=== PATIENT | male | born 1985 | race Two or more races ===

== ENCOUNTER 2024-03-10 14:05 | Emergency (ER) | payer MEDICAID ==
[~2024-03-10] VITALS: Ht 165.1 cm; Wt 78.1 kg
[2024-03-10] MEDS: KETOROLAC TROMETH 60MG/2ML VIAL IM ONE (14:50)
[2024-03-10] MEDS: ONDANSETRON ODT 4 MG TAB PO ONE (14:51)
[2024-03-10] MEDS: MECLIZINE HCL 25 MG TAB PO ONE (14:51)
[2024-03-10 14:58] LABS: Basophils # (auto) 0 10 ^3/uL (0-0.2); Basophils % (auto) 0.4 % (0.0-2.0); Eosinophils # (auto) 0.2 10 ^3/uL (0-0.8); Eosinophils % (auto) 1.9 % (0.0-7.0); Hematocrit 47.2 % (41.0-53.0); Hemoglobin 15.8 g/dL (13.5-17.5); Lymphocytes # (auto) 3.1 10 ^3/uL (0.4-5.4); Mean Corpuscular Hgb Conc. 33.5 g/dL (32.0-36.0); Mean Corpuscular Volume 89.6 fL (80.0-100.0); Monocytes % (auto) 8.6 % (0.0-12.0); Neutrophils # (auto) 7.2 10 ^3/uL (1.6-8.6); Neutrophils % (auto) 62.1 % (37.0-80.0); Nucleated Red Blood Cells % 0.1 %; Platelet Count (auto) 328 10^3/uL (140-450); Red Blood Cells 5.28 10^6/uL (4.5-5.90); Red Cell Distribution Width 13.2 % (11.8-14.3); White Blood Cell 11.5 10^3/uL (4.4-10.8)
[2024-03-10 15:06] LABS: Chloride 107 mmol/L (98-107); Sodium 138 mmol/L (136-145)
[2024-03-10 15:07] LABS: Anion Gap 5 (5-15); Carbon Dioxide 26 mmol/L (20-31)
[2024-03-10 15:08] LABS: Calcium 9.9 mg/dL (8.7-10.4)
[2024-03-10 15:12] LABS: Glucose 101 mg/dL (74-106)
[2024-03-10 15:13] LABS: BUN/Creatinine Ratio 23.5 (10.0-20.0); Blood Urea Nitrogen 20 mg/dL (9-23); Lipase 40 U/L (12-53)
[2024-03-10 17:17] LABS: Urine Bacteria None Seen /hpf (None Seen)
[2024-03-10 17:23] LABS: Urine Blood Negative /uL (Negative); Urine Clarity Clear (Clear); Urine Color Light-Yellow (Yellow); Urine Protein, UAD Negative (Negative); Urine Specific Gravity 1.021 (1.001-1.035); Urine Urobilinogen Normal (Negative); Urine WBC 1 /hpf (0 - 3)
[2024-03-10] MEDS ORDERED: ZOFR4T PO (18:01)
[2024-03-10] MEDS ORDERED: MECL1TAB42 PO (18:01)
[2024-03-10 18:10] VITALS: BP 125/79; PULSE 48; RESP 16; TEMP 98.7; O2SAT 100
== END 2024-03-10 18:35 | disposition home or self-care (01) ==
LOC: ER 14:05
DX: R51.9 Headache, unspecified (principal); R10.9 Unspecified abdominal pain; R55 Syncope and collapse; R42 Dizziness and giddiness; W06.XXXA Fall from bed, initial encounter; Y93.89 Activity, other specified; Y92.89 Other specified places as the place of occurrence of the external cause; Y99.8 Other external cause status
CPT/HCPCS: 36415; 70450; 80048; 81001; 82962; 83690; 84484; 85025; 85379; 93005; 96372; 99285; J1885; J8597; Q0162

== ENCOUNTER 2024-03-17 21:36 | Inpatient (IN) | payer MEDICAID ==
[~2024-03-17] VITALS: Ht 165.1 cm; Wt 80.6 kg
[~2024-03-17 21:36] MED LIST: MECL1TAB42 PO; ZOFR4T PO
[2024-03-17 22:37] LABS: Urine Bacteria None Seen /hpf (None Seen)
[2024-03-17 22:47] LABS: Urine Blood Negative /uL (Negative); Urine Clarity Clear (Clear); Urine Color Dark-Orange (Yellow); Urine Protein, UAD Negative (Negative); Urine Specific Gravity 1.013 (1.001-1.035); Urine Urobilinogen 2 mg/dL (Negative); Urine WBC <1 /hpf (0 - 3); Urine pH 5.5 (5.0-9.0)
[2024-03-17 23:05] LABS: Basophils # (auto) 0 10 ^3/uL (0-0.2); Basophils % (auto) 0.4 % (0.0-2.0); Eosinophils # (auto) 0.3 10 ^3/uL (0-0.8); Eosinophils % (auto) 2.3 % (0.0-7.0); Hematocrit 45.8 % (41.0-53.0); Hemoglobin 15.5 g/dL (13.5-17.5); Lymphocytes # (auto) 3.2 10 ^3/uL (0.4-5.4); Lymphocytes % (auto) 28.6 % (10.0-50.0); Mean Corpuscular Hemoglobin 30.4 pg (28.0-32.0); Mean Corpuscular Hgb Conc. 33.8 g/dL (32.0-36.0); Mean Corpuscular Volume 90.1 fL (80.0-100.0); Monocytes # (auto) 0.9 10 ^3/uL (0-1.3); Monocytes % (auto) 8.2 % (0.0-12.0); Neutrophils # (auto) 6.8 10 ^3/uL (1.6-8.6); Neutrophils % (auto) 60.5 % (37.0-80.0); Nucleated Red Blood Cells % 0.1 %; Platelet Count (auto) 313 10^3/uL (140-450); Red Blood Cells 5.09 10^6/uL (4.5-5.90); Red Cell Distribution Width 13.3 % (11.8-14.3); White Blood Cell 11.2 10^3/uL (4.4-10.8)
[2024-03-17 23:18] LABS: Chloride 107 mmol/L (98-107); Sodium 139 mmol/L (136-145)
[2024-03-17 23:19] LABS: Anion Gap 5 (5-15); Carbon Dioxide 27 mmol/L (20-31)
[2024-03-17 23:24] LABS: BUN/Creatinine Ratio 11.5 (10.0-20.0); Blood Urea Nitrogen 12 mg/dL (9-23); Glucose 108 mg/dL (74-106)
[2024-03-18] MEDS: IOHEXOL 300 MG/ML 100ML BOTTLE IJ ONE (01:02)
[2024-03-18] MEDS: SODIUM CHLORIDE 0.9% 1,000 ML IV ONE (01:20)
[2024-03-18] MEDS: ONDANSETRON HCL 4 MG/2 ML VIAL IV ONE ×2 (01:20→01:43)
[2024-03-18 01:31] VITALS: PULSE 98; RESP 18; O2SAT 97
[2024-03-18] MEDS: cefTRIAXone 1GM/50ML D5W 50 ML IV ONE (01:37)
[2024-03-18] MEDS: MORPHINE SULFATE 4 MG/ML SYR/VIAL IV ONE (01:43)
[2024-03-18] MEDS ORDERED: ACETAMINOPHEN 325 MG TAB PO PRN (05:00)
[2024-03-18] MEDS ORDERED: DOCUSATE SOD 100 MG CAP PO PRN (05:00)
[2024-03-18] MEDS ORDERED: ONDANSETRON HCL 4 MG/2 ML VIAL IV PRN (05:00)
[2024-03-18] MEDS ORDERED: HYDROcodone-ACET 5/325MG TAB PO PRN (05:00)
[2024-03-18] MEDS ORDERED: MORPHINE SULFATE INJ 2 MG/ml SYRG IV PRN ×2 (05:00→06:30)
[2024-03-18] MEDS: metroNIDAZOLE 500MG/100ML 100 ML IV SCH (06:00)
[2024-03-18 06:10] LABS: Basophils # (auto) 0 10 ^3/uL (0-0.2); Basophils % (auto) 0.3 % (0.0-2.0); Eosinophils # (auto) 0.2 10 ^3/uL (0-0.8); Eosinophils % (auto) 1.8 % (0.0-7.0); Hematocrit 46.8 % (41.0-53.0); Hemoglobin 15.9 g/dL (13.5-17.5); Lymphocytes # (auto) 4.3 10 ^3/uL (0.4-5.4); Lymphocytes % (auto) 35.2 % (10.0-50.0); Mean Corpuscular Hemoglobin 30.6 pg (28.0-32.0); Monocytes % (auto) 8.1 % (0.0-12.0); Neutrophils # (auto) 6.6 10 ^3/uL (1.6-8.6); Neutrophils % (auto) 54.6 % (37.0-80.0); Nucleated Red Blood Cells % 0.3 %; Platelet Count (auto) 309 10^3/uL (140-450); Red Blood Cells 5.21 10^6/uL (4.5-5.90); Red Cell Distribution Width 13.4 % (11.8-14.3); White Blood Cell 12.1 10^3/uL (4.4-10.8)
[2024-03-18] MEDS ORDERED: NITROGLYCERIN 0.4 MG SL TAB SL PRN (06:30)
[2024-03-18 06:31] LABS: Alanine Aminotransferase 49 U/L (7-40); Albumin 4.8 g/dL (3.2-4.8); Alkaline Phosphatase 111 U/L (46-116); Anion Gap 7 (5-15); Aspartate Aminotransferase 24 U/L (13-40); BUN/Creatinine Ratio 12.6 (10.0-20.0); Blood Urea Nitrogen 11 mg/dL (9-23); Calcium 9.9 mg/dL (8.7-10.4); Carbon Dioxide 25 mmol/L (20-31); Chloride 107 mmol/L (98-107); Glucose 93 mg/dL (74-106); Sodium 139 mmol/L (136-145)
[2024-03-18 06:32] LABS: Bilirubin, Total 0.7 mg/dL (0.2-1.0)
[2024-03-18] MEDS: SODIUM CHLORIDE 0.9% 1,000 ML IV SCH (07:18)
[2024-03-18 07:23] VITALS: PULSE 56; RESP 20; O2SAT 98
[2024-03-18] MEDS: PANTOPRAZOLE 40 MG/10 ML VIAL INJ IV ONE (10:48)
[2024-03-18] MEDS: levoFLOXacin 500MG 100 ML IV SCH (10:48)
[2024-03-18] MEDS: levoFLOXacin 500MG 100 ML IV ONE (10:48)
[2024-03-18] MEDS: PANTOPRAZOLE 40 MG/10 ML VIAL INJ IV SCH (10:48)
[2024-03-18 20:20] VITALS: PULSE 71; RESP 17; O2SAT 95
[2024-03-18 21:00] VITALS: BP 125/73; PULSE 68; RESP 18; TEMP 98.4; O2SAT 97
[2024-03-19] VITALS (8 sets, daily range): BP systolic 105–138; BP diastolic 58–74; PULSE 54–78; RESP 17–20; TEMP 97.6–98.5; O2SAT 93–98
[2024-03-19] MEDS ORDERED: PANT40T PO (16:19)
[2024-03-19] MEDS ORDERED: LIDO5PAD12 TD (16:19)
[2024-03-19] MEDS ORDERED: CHOL500035 PO (16:19)
[2024-03-19 18:23] LABS: Urine Bacteria None Seen /hpf (None Seen)
[2024-03-19 18:31] LABS: Urine Blood Negative /uL (Negative); Urine Clarity Clear (Clear); Urine Color Light-Yellow (Yellow); Urine Protein, UAD Negative (Negative); Urine Specific Gravity 1.009 (1.001-1.035); Urine Urobilinogen Normal (Negative); Urine WBC <1 /hpf (0 - 3)
[2024-03-20 05:00] VITALS: BP 131/69; PULSE 59; RESP 18; TEMP 98.4; O2SAT 100
[2024-03-20 08:00] VITALS: RESP 18; O2SAT 97
[2024-03-20 08:40] VITALS: BP 110/74; PULSE 89; RESP 18; TEMP 97.9; O2SAT 97
[2024-03-20] MEDS: FAMOTIDINE 20 MG TAB PO SCH (09:16)
[2024-03-20] MEDS ORDERED: TAMS-35 PO (11:34)
[2024-03-20] MEDS ORDERED: FAMO-12 PO (11:34)
[2024-03-20] MEDS ORDERED: LEVO500T91 PO (11:34)
[2024-03-20 13:25] VITALS: BP 125/81; PULSE 62; RESP 16; TEMP 98.1; O2SAT 98
[2024-03-20 13:39] VITALS: BP 124/81; PULSE 85; RESP 18; TEMP 36.7; O2SAT 96
== END 2024-03-20 14:04 | disposition home or self-care (01) | DRG 501 ==
LOC: ER 21:36 → OVERFLOW 03-18 06:18 → ER 03-18 06:20 → WEST WING 03-18 20:20
PROVIDERS: ADMIT Nurse Practitioner Family; ATTEND Student in an Organized Health Care Education/Training Program
DX: N40.1 Benign prostatic hyperplasia with lower urinary tract symptoms (principal); A08.4 Viral intestinal infection, unspecified; Z88.0 Allergy status to penicillin; Z79.899 Other long term (current) drug therapy
CPT/HCPCS: 36415; 74177; 80048; 80053; 81001; 85025; 87086; 93005; 96361; 96365; 96367; 96375; 99291; G0378; J1956; J2405; J2470; J3490

== ENCOUNTER 2024-04-23 08:56 | Day surgery (SDC) | payer MEDICAID ==
[2024-04-19 09:59] LABS: Basophils # (auto) 0.1 10 ^3/uL (0-0.2); Basophils % (auto) 0.7 % (0.0-2.0); Eosinophils # (auto) 0.2 10 ^3/uL (0-0.8); Eosinophils % (auto) 2.2 % (0.0-7.0); Lymphocytes # (auto) 2.6 10 ^3/uL (0.4-5.4); Lymphocytes % (auto) 32.1 % (10.0-50.0); Mean Corpuscular Hgb Conc. 34.1 g/dL (32.0-36.0); Mean Corpuscular Volume 90.9 fL (80.0-100.0); Monocytes # (auto) 0.8 10 ^3/uL (0-1.3); Monocytes % (auto) 9.4 % (0.0-12.0); Neutrophils # (auto) 4.5 10 ^3/uL (1.6-8.6); Neutrophils % (auto) 55.6 % (37.0-80.0); Nucleated Red Blood Cells % 0.3 %; Platelet Count (auto) 294 10^3/uL (140-450); Red Blood Cells 5.17 10^6/uL (4.5-5.90); Red Cell Distribution Width 13.5 % (11.8-14.3); White Blood Cell 8.1 10^3/uL (4.4-10.8)
[2024-04-19 10:16] LABS: INR 1.04 (0.9-1.15); Partial Thromboplastin Time 28.8 SEC (24.5-34.5)
[2024-04-19 10:48] LABS: Alanine Aminotransferase 46 U/L (7-40); Albumin 4.7 g/dL (3.2-4.8); Alkaline Phosphatase 111 U/L (46-116); Anion Gap 8 (5-15); Aspartate Aminotransferase 21 U/L (13-40); BUN/Creatinine Ratio 16.1 (10.0-20.0); Bilirubin, Total 0.5 mg/dL (0.2-1.0); Blood Urea Nitrogen 15 mg/dL (9-23); Calcium 10.5 mg/dL (8.7-10.4); Carbon Dioxide 28 mmol/L (20-31); Chloride 106 mmol/L (98-107); Glucose 97 mg/dL (74-106); Potassium 4.5 mmol/L (3.5-5.1); Sodium 142 mmol/L (136-145); Total Protein 7.9 g/dL (5.7-8.2)
[~2024-04-23] VITALS: Ht 165.1 cm; Wt 79.4 kg
[~2024-04-23 08:56] MED LIST changes: +CHOL500035 PO; -MECL1TAB42 PO; +TAMS-35 PO; -ZOFR4T PO
[2024-04-23] MEDS ORDERED: SODIUM CHLORIDE LOCK 10 ML ONE (09:30)
[2024-04-23 11:52] VITALS: PULSE 71; RESP 18; O2SAT 99
[2024-04-23] MEDS: fentaNYL CITRATE 100 MCG/2 ML VL ONE (11:54)
[2024-04-23] MEDS: MIDAZOLAM HCL 5 MG/ML-1ML VIAL ONE (11:54)
[2024-04-23] MEDS: MIDAZOLAM HCL 2MG/2ML 2ml VIAL (1mg/ml) ONE (12:00)
[2024-04-23] MEDS: diphenhdrAMINE HCL 50 MG/1 ML VL ONE (12:01)
[2024-04-23 12:07] VITALS: RESP 17
[2024-04-23 12:08] VITALS: TEMP 97.6; O2SAT 96
--- NOTE | 2024-04-23 12:09 | DVHNC2 ---
Procedure - PROCEDURE PERFORMED BY: Mitesh Avilez MD REFERRING PROVIDER: Dr. Brian LE PROCEDURE PERFORMED: 1. Esophagogastroduodenoscopy with biopsy with moderate sedation PRE-PROCEDURE DIAGNOSIS: 1. GERD refractory to treatment 2. Epigastric abdominal pain POSTPROCEDURE DIAGNOSIS: 1. Mild erosive esophagitis, LA grade A 2. Mild gastritis MEDICATIONS USED: 6 mg IV Versed, 75 mcg of Fentanyl IV and 50 mg of Benadryl IV DETAILS OF THE PROCEDURE: Informed consent was obtained after risks benefits and alternatives were discussed at length with patient patient gave consent to the procedure as well as medication used for sedation. The patient was placed in left lateral decubitus position. An Olympus variable endoscope was inserted into the oropharynx advanced into the esophagus, then into the stomach, then into the duodenal bulb and duodenum. The scope was then withdrawn. The mucosa was carefully evaluated. The duodenum was normal to the 3rd portion. The stomach showed gastritis, biopsies were taken the body and antrum and sent for H pylori as well as pathology. Retroflexion showed no abnormalities. The scope was withdrawn. The esophagus showed mild erosive esophagitis with the Z-line at 39 cm. The scope was then withdrawn and the procedure completed. The patient tolerated the procedure well. IMPRESSION: 1. Mild erosive esophagitis and mild gastritis. No ulcers, tumors, strictures, or hernia seen. RECOMMENDATIONS: 1. Follow up in GI Clinic for procedure and pathology results 2. Anti-reflux precautions 3. Patient should be on a proton pump inhibitor 30 minutes before breakfast daily 4. Consider further workup for the patient's symptoms that they persist or worsen 5. Consider adding H2 toby for the patient's symptoms of GERD that was refractory to treatment 6. Avoid caffeine, spicy food, alcohol, chocolate, tomatoes, citrus, late night eating. I WOULD LIKE TO THANK DR. QUINN FOR THIS REFERRAL MITESH AVILEZ MD Apr 23, 2024 12:09
[2024-04-23 12:38] VITALS: BP 111/65; PULSE 66
== END 2024-04-23 13:01 | disposition home or self-care (01) ==
LOC: GI 08:56 → EDUNIT# 14:45
PROVIDERS: ATTEND Specialist
DX: K21.00 Gastro-esophageal reflux disease with esophagitis, without bleeding (principal); K29.50 Unspecified chronic gastritis without bleeding; Z90.89 Acquired absence of other organs; Z88.0 Allergy status to penicillin; Z98.890 Other specified postprocedural states; Z83.3 Family history of diabetes mellitus
CPT/HCPCS: 36415; 43239; 80053; 85025; 85610; 85730; 88305; 88312; 88342; J1200; J2250; J3010; 99152